=== PATIENT | female | born 1970 | race Caucasian/White ===

== ENCOUNTER → 2017-01-26 16:48 | Outpatient (CLI) | payer BC ==
[2014-07-03 12:41] VITALS: BMI 39.6
[~2017-01-26 16:48] MED LIST: ATENOLOL25 MG PO; HYDROCODONE-APA1 TAB PO; PHENERGAN25 M1 PO
== END | disposition home or self-care (01) ==
LOC: D.MAMMO 09:00
DX: Z12.31 Encounter for screening mammogram for malignant neoplasm of breast (principal)

== ENCOUNTER → 2017-03-02 16:59 | Outpatient (CLI) | payer BC ==
[2014-07-03 12:41] VITALS: BMI 39.6
== END | disposition home or self-care (01) ==
LOC: D.MAMMO 10:30
DX: R92.2 Inconclusive mammogram (principal)

== ENCOUNTER 2019-01-03 21:21 | Emergency (ER) | payer OTHER ==
[~2019-01-03] VITALS: Ht 165.1 cm; Wt 106.4 kg
[2019-01-03 21:34] VITALS: Ht 165.1 cm; Wt 106.4 kg
[2019-01-03] MEDS ORDERED: BAYER CHEWABLE81 MG PO (21:35)
[2019-01-03] MEDS ORDERED: VITAMIN B-12500 MCG PO (21:36)
[2019-01-03] MEDS ORDERED: VITAMIN D31000 UNIT PO (21:36)
[2019-01-03] MEDS ORDERED: MAXZIDE 75/501 TAB PO (21:36)
[2019-01-03] MEDS ORDERED: TENORMIN50 MG PO (21:36)
[2019-01-03] MEDS ORDERED: COLACE100 MG PO (21:37)
[2019-01-03 22:18] LABS: BASOPHILS 0.2 % (0-2); EOSINOPHILS 2.5 % (0-7); HEMATOCRIT 40.5 % (36.0-48.0); HEMOGLOBIN 13.9 g/dL (12-16); IMMATURE GRANULOCYTES 0.2 % (0-5); LYMPHOCYTES 20.1 % (15-50); MCH 30.3 pg (26.0-34.0); MCHC 34.3 g/dL (31.0-37.0); MCV 88.2 fL (80.0-100.0); MEAN PLATELET VOLUME 9.9 fL (7.4-10.4); MONOCYTES 6.3 % (2-11); NEUTROPHILS 70.7 % (40-80); PLATELET COUNT 297 10x3/uL (130-400); RBC 4.59 10x6/uL (4.00-5.40); RDW 12.7 % (11.5-14.5); WBC 12.4 10x3/uL (4.8-10.8)
[2019-01-03 22:31] LABS: ALBUMIN 3.7 g/dL (3.4-5.0); ALKALINE PHOSPHATASE 101 U/L (46-116); ALT (SGPT) 20 U/L (10-68); BILIRUBIN - TOTAL 0.38 mg/dL (0.2-1.3); CALC OSMOLALITY 277 mosm/kg (275-300); CALCIUM 8.7 mg/dL (8.5-10.1); CHLORIDE - SERUM 100 mmol/L (98-107); CREATININE - SERUM 0.7 mg/dL (0.6-1.3); GLUCOSE 109 mg/dL (74-106); POTASSIUM - SERUM 3.4 mmol/L (3.5-5.1); PROTEIN - SERUM 7.6 g/dL (6.4-8.2); SODIUM 139 mmol/L (136-145); UREA NITROGEN 10 mg/dL (7-18); eGFR NON AFRICAN AMERICAN > 90 mL/min (90-120)
[2019-01-03 22:37] LABS: AMYLASE - SERUM 28 U/L (25-115); LIPASE 76 U/L (73-393); TROPONIN-I < 0.017 ng/mL (0.000-0.060)
[2019-01-03 23:06] LABS: APPEARANCE CLOUDY (CLEAR); COLOR ORANGE (YELLOW)
[2019-01-03 23:07] LABS: AMORPHOUS SEDIMENT >1+ /lpf (NONE SEEN); BACTERIA FEW /hpf (NONE SEEN); EPITHELIAL CELLS 0-5 /hpf (0-5); RED CELLS - URINE 0-5 /hpf (0-5); WHITE CELLS - URINE 0-5 /hpf (0-5)
[2019-01-04] MEDS ORDERED: BENTYL 20 MG TA20 MG PO (00:18)
[2019-01-04] MEDS ORDERED: ZOFRAN ODT4 MG/UDTAB PO (00:18)
[2019-01-04 00:48] VITALS: BP 135/74
== END 2019-01-04 00:49 | disposition home or self-care (01) ==
LOC: D.ER 21:21
PROVIDERS: Family Medicine
DX: A08.4 Viral intestinal infection, unspecified (principal); R11.2 Nausea with vomiting, unspecified